=== PATIENT | male | born 1960 | race Caucasian/White ===

== ENCOUNTER 2018-03-22 21:55 | Inpatient (IN) | payer OTHER ==
[~2018-03-22] VITALS: Ht 180.3 cm; Wt 156.3 kg
[~2018-03-22 21:55] MED LIST: APIDRA; ASPIRIN81 M2 PO; ATORVASTATIN CA20 MG PO; FENOFIBRATE145 MG PO; FLUTICASONE; HYDROCHLOROTHIA25 MG PO; INSULIN GLULISINE; LANTUS; LOSARTAN POTAS100 MG PO; METOPROLOL SUCC50 MG PO; METROGEL55 GM; PROAIR HFA INH8.5 GM INH; TYLENOL ALLERG PO; VITAMIN D3; XIGDUO PO; Z.0.LISINOPRIL20 MG PO; Z.0.PRAVASTATIN SOD4 PO; Z.1.LEVOTHYROXINE100 PO; Z.1.METFORMIN HCL100 PO; Z.1.RANITIDINE HCL30 PO
[2018-03-22 22:57] LABS: BASOPHILS # (AUTO) 0.1 (0.0-0.1); BASOPHILS % 0.4 % (0.0-1.0); EOSINOPHILS % 0.1 % (0.0-6.0); HEMATOCRIT 40.4 % (38.2-49.6); HEMOGLOBIN 14.2 g/dL (14.0-18.0); LYMPHOCYTES % 6.3 % (18.0-39.1); MEAN CORPUSCULAR HEMOGLOBIN 28.7 pg (28-32); MEAN CORPUSCULAR HGB CONC 35.1 g/dL (31-35); MEAN CORPUSCULAR VOLUME 81.8 fL (81-99); MONOCYTES # (AUTO) 0.9 (0.2-0.8); MONOCYTES % 5.9 % (4.4-11.3); NEUTROPHILS # (AUTO) 13.2 (2.1-6.9); PLATELET COUNT 170 x10e3/uL (140-360); RED BLOOD COUNT 4.94 x10e6/uL (4.3-5.7)
[2018-03-22 23:04] LABS: COLOR,URINE YELLOW (YELLOW)
[2018-03-22 23:05] LABS: BILIRUBIN,URINE NEGATIVE (NEGATIVE); CLARITY,URINE CLEAR (CLEAR); KETONES,URINE 1+ (NEGATIVE); LEUKOCYTE ESTERASE ,URINE NEGATIVE (NEGATIVE); NITRITE,URINE NEGATIVE (NEGATIVE); PROTEIN,URINE DIPSTICK NEGATIVE (NEGATIVE); URINE UROBILINOGEN 0.2 mg/dL (0.2 - 1)
[2018-03-22 23:12] LABS: ALANINE AMINOTRANSFERASE 30 IU/L (0-55); ALBUMIN 3.7 g/dL (3.5-5.0); ALKALINE PHOSPHATASE 66 IU/L (40-150); ANION GAP 16.1 mmol/L (8-16); BLOOD UREA NITROGEN 16 mg/dL (7-26); BUN/CREATININE RATIO 19 (6-25); CALCIUM 9.6 mg/dL (8.4-10.2); CARBON DIOXIDE 24 mmol/L (22-29); CHLORIDE 100 mmol/L (98-107); CREATININE, SERUM 0.85 mg/dL (0.72-1.25); EST GLOMERULAR FILTRATION RATE > 60 ML/MIN (60-); GLUCOSE 179 mg/dL (74-118); POTASSIUM 3.1 mmol/L (3.5-5.1); SODIUM 137 mmol/L (136-145)
[2018-03-22 23:16] LABS: BACTERIA,URINE FEW /HPF; EPITHELIAL CELLS,URINE RARE /LPF; WBC,URINE (MAN) 0-5 /HPF (0-5)
[2018-03-23] VITALS (7 sets, daily range): BP systolic 118–149; BP diastolic 56–82
[2018-03-23] MEDS ORDERED: ONDANSETRON HCL INJ 2 MG/ML VIAL IV PRN (03:00)
[2018-03-23] MEDS ORDERED: ALBUTEROL SULFATE HFA 8GM INHALATION AEROSOL INH PRN (03:00)
[2018-03-23] MEDS ORDERED: DEXTROSE 50% SYRINGE 50 ML IV PRN (03:00)
[2018-03-23] MEDS ORDERED: MORPHINE SULFATE 2 MG/ML SYR IV PRN (03:00)
[2018-03-23] MEDS: PIPER-TAZ 3.375 GM 50 ML IV SCH ×3 (03:29→21:30)
[2018-03-23] MEDS: ACETAMINOPHEN 325 MG TAB PO PRN ×3 (03:47→23:00)
[2018-03-23] MEDS: SODIUM CHLORIDE 0.9% 1000ML 1,000 ML IV SCH ×2 (04:48→08:31)
[2018-03-23] MEDS: VANCOMYCIN 1GM/NS 250 ML 250 ML IV SCH ×2 (04:48→16:36)
[2018-03-23] MEDS: LOSARTAN POTASSIUM 100 MG TAB PO SCH (08:31)
[2018-03-23] MEDS: ASPIRIN 81 MG CHEW TAB PO SCH (08:31)
[2018-03-23] MEDS: INSULIN REGULAR, HUMAN 100 UNIT/1 ML 3ML VIAL SQ SCH ×4 (08:31→21:45)
[2018-03-23] MEDS: FAMOTIDINE 20 MG TAB PO SCH (08:31)
[2018-03-23] MEDS: METOPROLOL SUCCINATE 50 MG TAB XL PO SCH (08:31)
[2018-03-23] MEDS ORDERED: HUMULIN R100 UNIT/2 SC (10:06)
[2018-03-23] MEDS ORDERED: POTASSIUM CHLORIDE 20 MEQ TAB CR PO ONE (14:00)
[2018-03-23] MEDS ORDERED: LIOTHYRONINE SO5 MCG PO (15:07)
[2018-03-23] MEDS ORDERED: nasacort IH (15:07)
[2018-03-23] MEDS ORDERED: LORATADINE10 MG PO (15:07)
[2018-03-23] MEDS ORDERED: NOVOLOG100 UNIT/1 SC (15:07)
[2018-03-23] MEDS ORDERED: LOSARTAN-HCTZ1 EAC1 PO (15:07)
[2018-03-23] MEDS ORDERED: AMLODIPINE BESY10 MG PO (15:07)
[2018-03-23] MEDS ORDERED: Toujeo SC (15:07)
[2018-03-23] MEDS: ENOXAPARIN SOD INJ 40 MG/0.4 ML SYR SC SCH (16:37)
[2018-03-23] MEDS: INSULIN LISPRO 100 UNIT/1 ML 3ML VIAL SQ SCH (16:37)
[2018-03-23] MEDS: METFORMIN HCL 500 MG TAB CR PO SCH (16:37)
[2018-03-23] MEDS: INSULIN DETEMIR 100 UNIT/ML PEN SQ SCH (21:30)
[2018-03-23] MEDS: ATORVASTATIN 20 MG TAB PO SCH (21:30)
[2018-03-24] VITALS (7 sets, daily range): BP systolic 104–155; BP diastolic 58–89
[2018-03-24] MEDS: VANCOMYCIN 1GM/NS 250 ML 250 ML IV SCH ×2 (04:04→16:40)
[2018-03-24] MEDS: LIOTHYRONINE SODIUM 5 MCG TAB PO SCH (05:58)
[2018-03-24] MEDS: PIPER-TAZ 3.375 GM 50 ML IV SCH ×3 (05:58→22:11)
[2018-03-24] MEDS: LEVOTHYROXINE SODIUM 125 MCG TAB PO SCH (05:59)
[2018-03-24] MEDS: LEVOTHYROXINE SODIUM 50 MCG TAB PO SCH (05:59)
[2018-03-24 06:04] LABS: BASOPHILS # (AUTO) 0.1 (0.0-0.1); BASOPHILS % 0.9 % (0.0-1.0); EOSINOPHILS # (AUTO) 0.2 (0.0-0.4); EOSINOPHILS % 2.6 % (0.0-6.0); HEMATOCRIT 36.6 % (38.2-49.6); HEMOGLOBIN 12.2 g/dL (14.0-18.0); LYMPHOCYTES # (AUTO) 1.3 (1.0-3.2); LYMPHOCYTES % 16.4 % (18.0-39.1); MEAN CORPUSCULAR HEMOGLOBIN 28.7 pg (28-32); MEAN CORPUSCULAR HGB CONC 33.3 g/dL (31-35); MONOCYTES # (AUTO) 0.7 (0.2-0.8); MONOCYTES % 8.4 % (4.4-11.3); NEUTROPHILS # (AUTO) 5.6 (2.1-6.9); NEUTROPHILS % 71.4 % (38.7-80.0); PLATELET COUNT 154 x10e3/uL (140-360); RED BLOOD COUNT 4.25 x10e6/uL (4.3-5.7); RED CELL DISTRIBUTION WIDTH 16.4 % (11.7-14.4)
[2018-03-24 06:07] LABS: MEAN CORPUSCULAR VOLUME 86.1 fL (81-99)
[2018-03-24 06:24] LABS: MAGNESIUM 1.8 MG/DL (1.3-2.1)
[2018-03-24 06:26] LABS: ALANINE AMINOTRANSFERASE 23 IU/L (0-55); ALBUMIN 3.1 g/dL (3.5-5.0); ALBUMIN/GLOBULIN RATIO 0.9 (0.8-2.0); ALKALINE PHOSPHATASE 61 IU/L (40-150); ANION GAP 11.6 mmol/L (8-16); BLOOD UREA NITROGEN 11 mg/dL (7-26); BUN/CREATININE RATIO 14 (6-25); CARBON DIOXIDE 29 mmol/L (22-29); CHLORIDE 107 mmol/L (98-107); EST GLOMERULAR FILTRATION RATE > 60 ML/MIN (60-); GLUCOSE 157 mg/dL (74-118); POTASSIUM 3.6 mmol/L (3.5-5.1); SODIUM 144 mmol/L (136-145)
[2018-03-24 06:50] LABS: THYROID STIMULATING HORMONE 4.911 uIU/mL (0.350-4.940)
[2018-03-24] MEDS: INSULIN REGULAR, HUMAN 100 UNIT/1 ML 3ML VIAL SQ SCH ×4 (07:55→20:24)
[2018-03-24] MEDS: METFORMIN HCL 500 MG TAB CR PO SCH ×2 (07:55→16:41)
[2018-03-24] MEDS: FAMOTIDINE 20 MG TAB PO SCH (07:56)
[2018-03-24] MEDS: INSULIN LISPRO 100 UNIT/1 ML 3ML VIAL SQ SCH ×3 (07:56→16:41)
[2018-03-24] MEDS: ASPIRIN 81 MG CHEW TAB PO SCH (07:56)
[2018-03-24] MEDS: LOSARTAN POTASSIUM 100 MG TAB PO SCH (07:56)
[2018-03-24] MEDS: LORATADINE 10 MG TAB PO SCH (07:56)
[2018-03-24] MEDS: METOPROLOL SUCCINATE 50 MG TAB XL PO SCH (07:56)
[2018-03-24] MEDS: LACTOBACILLUS ACIDOPHILUS CAPSULE PO SCH (16:41)
[2018-03-24] MEDS: ENOXAPARIN SOD INJ 40 MG/0.4 ML SYR SC SCH (16:41)
[2018-03-24] MEDS: ATORVASTATIN 20 MG TAB PO SCH (22:11)
[2018-03-24] MEDS: INSULIN DETEMIR 100 UNIT/ML PEN SQ SCH (22:15)
[2018-03-25] VITALS: BP 148/67
[2018-03-25 04:00] VITALS: BP 134/61
[2018-03-25] MEDS: VANCOMYCIN 1GM/NS 250 ML 250 ML IV SCH (04:45)
[2018-03-25] MEDS: LIOTHYRONINE SODIUM 5 MCG TAB PO SCH (06:11)
[2018-03-25] MEDS: LEVOTHYROXINE SODIUM 50 MCG TAB PO SCH (06:11)
[2018-03-25] MEDS: PIPER-TAZ 3.375 GM 50 ML IV SCH (06:11)
[2018-03-25] MEDS: LEVOTHYROXINE SODIUM 125 MCG TAB PO SCH (06:11)
[2018-03-25 07:10] VITALS: BP 173/78
[2018-03-25] MEDS: ASPIRIN 81 MG CHEW TAB PO SCH (08:28)
[2018-03-25] MEDS: FAMOTIDINE 20 MG TAB PO SCH (08:28)
[2018-03-25] MEDS: LORATADINE 10 MG TAB PO SCH (08:28)
[2018-03-25] MEDS: LACTOBACILLUS ACIDOPHILUS CAPSULE PO SCH (08:28)
[2018-03-25] MEDS: LOSARTAN POTASSIUM 100 MG TAB PO SCH (08:28)
[2018-03-25] MEDS: METFORMIN HCL 500 MG TAB CR PO SCH (08:28)
[2018-03-25] MEDS: METOPROLOL SUCCINATE 50 MG TAB XL PO SCH (08:28)
[2018-03-25] MEDS: INSULIN LISPRO 100 UNIT/1 ML 3ML VIAL SQ SCH ×2 (08:29→12:10)
[2018-03-25] MEDS: INSULIN REGULAR, HUMAN 100 UNIT/1 ML 3ML VIAL SQ SCH ×2 (08:30→12:10)
[2018-03-25 09:54] VITALS: BP 173/78
[2018-03-25] MEDS ORDERED: BACTRIM DS TAB1 EACH PO (11:44)
[2018-03-25 12:51] VITALS: BP 153/73
--- NOTE | 2018-03-25 16:12 | Discharge Summary ---
PRIMARY CARE PHYSICIAN: Dr. Rodolfo Sinclair with [facility]. FINAL DIAGNOSIS: Sepsis present on admission due to left leg cellulitis. SECONDARY DIAGNOSES 1. Diabetes. 2. Hypothyroidism. 3. Morbid obesity. 4. Hypertension. CONSULTANTS: None. PROCEDURE/STUDY PERFORMED: None. HISTORY: Per H\T\P. HOSPITAL COURSE: The patient was admitted. IV vancomycin and Zosyn were started. His fever went away. His leukocytosis resolved as well. Erythema is better. The patient will go home today on Bactrim for another week. Continue leg elevation when he is not on his feet. The patient received Lovenox for DVT prophylaxis. I will also update his primary care physician about this hospitalization. All questions answered in detail from the at the bedside. It took 32 minutes total to discharge this patient today. The patient was seen and examined today CONDITION ON DISCHARGE: Improved. DISCHARGE MEDICATIONS: Please see medication reconciliation form. ERICKA MARTINEZ M.D. Job#: [id number] cc:RODOLFO SINCLAIR MD
[2018-03-25] MEDS ORDERED: ATORVASTATIN 40 MG TAB PO SCH (21:00)
== END 2018-03-25 12:11 | disposition home or self-care (01) | DRG 872 ==
LOC: ER 21:55 → ERHOLD 03-23 02:57 → MED/SURG2 03-23 04:08
PROVIDERS: ADMIT Internal Medicine; ATTEND Internal Medicine
DX: A41.9 Sepsis, unspecified organism (principal); L03.116 Cellulitis of left lower limb; Z68.42 Body mass index [BMI] 45.0-49.9, adult; B96.89 Other specified bacterial agents as the cause of diseases classified elsewhere; E03.9 Hypothyroidism, unspecified; E66.01 Morbid (severe) obesity due to excess calories; E11.65 Type 2 diabetes mellitus with hyperglycemia; E78.5 Hyperlipidemia, unspecified; F17.210 Nicotine dependence, cigarettes, uncomplicated; E87.6 Hypokalemia; Z79.52 Long term (current) use of systemic steroids
CPT/HCPCS: 36415; 80053; 80202; 81001; 82948; 83605; 83735; 84443; 85025; 87040; 87086; 99284; J1650; J2543; J3370; J7030